=== PATIENT | male | born 1955 | race Caucasian/White ===

== ENCOUNTER 2021-08-12 11:41 | Inpatient (IN) | payer MEDICAID, OTHER ==
[~2021-08-12] VITALS: Ht 172.7 cm; Wt 79.4 kg
[2021-08-12] MEDS ORDERED: METF-873 PO (12:07)
[2021-08-12] MEDS ORDERED: GLIP10TA10 PO (12:07)
[2021-08-12 14:39] LABS: BASOPHILS % 0.3 % (0.0-2.0); EOSINOPHILS % 0.8 % (0.0-5.0); HEMATOCRIT. 44.3 % (42.0-52.0); HEMOGLOBIN. 14.9 g/dL (14.0-18.0); LYMPHOCYTES % 12.9 % (20.0-50.0); MEAN CORPUSCULAR HEMOGLOBIN 29.5 pg (28.0-32.0); MEAN CORPUSCULAR VOLUME 87.6 fL (80.0-94.0); MEAN PLATELET VOLUME 8.7 fl (7.4-10.4); MONOCYTES % 8.1 % (2.0-8.0); NEUTROPHILS % 77.9 % (40.0-76.0); PLATELET 176 x1000/uL (130-400); RED BLOOD CELL COUNT 5.06 mill/uL (4.7-6.1); RED CELL DISTRIBUTION WIDTH 13.1 % (11.6-14.6)
[2021-08-12 14:43] LABS: CHLORIDE 105 mEq/L (98-107)
[2021-08-12] MEDS ORDERED: MEROPENEM 1,000 MG in SODIUM CHLORIDE 0.9% 100 ML IV SCH (15:00)
[2021-08-12] MEDS ORDERED: VANCOMYCIN 1 G PREMIX 200 ML IV SCH (15:00)
[2021-08-12 19:58] LABS: CLARITY URINE CLEAR (CLEAR); COLOR URINE YELLOW (YELLOW); KETONES URINE 1+ (NEGATIVE); LEUKOCYTE ESTERASE URINE NEGATIVE (NEGATIVE); NITRITE URINE NEGATIVE (NEGATIVE); OCCULT BLOOD URINE NEGATIVE (NEGATIVE); PH URINE 7.5 (4.5-8.0); PROTEIN URINE TRACE (NEGATIVE); SPECIFIC GRAVITY URINE 1.023 (1.005-1.030)
[2021-08-12] MEDS ORDERED: DEXTROSE 50% WATER 50ML SYRINGE IV PRN (23:00)
[2021-08-12] MEDS ORDERED: CLONIDINE 0.1MG TABLET PO PRN (23:00)
[2021-08-12] MEDS ORDERED: ACETAMINOPHEN 325MG TABLET PO PRN (23:00)
[2021-08-12] MEDS ORDERED: NALOXONE HCL 0.4 MG/ML 1ML VIAL IV PRN (23:30)
[2021-08-13] MEDS: METOPROLOL TARTRATE 50MG TABLET PO SCH ×3 (00:23→21:50)
[2021-08-13] MEDS: LISINOPRIL 40MG TABLET PO SCH ×2 (00:23→08:42)
[2021-08-13] MEDS ORDERED: ATEN-42 MT (01:39)
[2021-08-13] MEDS ORDERED: LISI40TA13 MT (01:39)
[2021-08-13 01:49] VITALS: BP 164/80
[2021-08-13] MEDS: MEROPENEM 1,000 MG in SODIUM CHLORIDE 0.9% 100 ML IV SCH ×3 (02:50→17:43)
[2021-08-13 06:13] LABS: BASOPHILS % 0.3 % (0.0-2.0); EOSINOPHILS % 2.2 % (0.0-5.0); HEMATOCRIT. 39.2 % (42.0-52.0); HEMOGLOBIN. 13.4 g/dL (14.0-18.0); LYMPHOCYTES % 18.2 % (20.0-50.0); MEAN CORPUSCULAR HEMOGLOBIN 29.6 pg (28.0-32.0); MEAN CORPUSCULAR VOLUME 86.4 fL (80.0-94.0); MEAN PLATELET VOLUME 8.8 fl (7.4-10.4); MONOCYTES % 8.9 % (2.0-8.0); NEUTROPHILS % 70.4 % (40.0-76.0); PLATELET 170 x1000/uL (130-400); RED BLOOD CELL COUNT 4.53 mill/uL (4.7-6.1)
[2021-08-13 06:23] LABS: CHLORIDE 104 mEq/L (98-107)
[2021-08-13 06:43] LABS: LDL CHOLESTEROL 63 mg/dL (5-100)
[2021-08-13 06:44] LABS: HDL CHOLESTEROL 63 mg/dL (40-59)
[2021-08-13] MEDS: BLOOD SUGAR DIAGNOSTIC STRIP TEST SCH ×5 (06:52→21:00)
[2021-08-13 08:00] VITALS: BP 124/65
[2021-08-13] MEDS: METFORMIN HCL 500MG TABLET PO SCH ×2 (08:40→17:43)
[2021-08-13] MEDS: ENOXAPARIN 40MG/0.4ML SYR SUBCUT SCH (08:42)
[2021-08-13] MEDS: INSULIN LISPRO 100 UNITS/ML SUBCUT SCH ×4 (08:48→22:48)
[2021-08-13 12:00] VITALS: BP 133/69
[2021-08-13 16:00] VITALS: BP 127/65
[2021-08-13] MEDS ORDERED: DOCUSATE SODIUM 100MG CAPSULE PO PRN (17:45)
[2021-08-13] MEDS ORDERED: MAGNESIUM/ALUMINUM HYDROXIDE/SIMETHICONE 30ML UDC PO PRN (17:45)
[2021-08-13] MEDS ORDERED: DEXTROSE 50% WATER 50ML SYRINGE IV PRN (17:45)
[2021-08-13 20:00] VITALS: BP 128/66
[2021-08-14] VITALS: BP 122/62
[2021-08-14 04:00] VITALS: BP 126/63
[2021-08-14] MEDS: BLOOD SUGAR DIAGNOSTIC STRIP TEST SCH ×8 (06:52→21:07)
[2021-08-14] MEDS: INSULIN LISPRO 100 UNITS/ML SUBCUT SCH ×4 (06:56→21:21)
[2021-08-14] MEDS: OMEPRAZOLE 20MG CAPSULE EXTENDED RELEASE PO SCH (07:03)
[2021-08-14 08:00] VITALS: BP 138/69
[2021-08-14 08:37] LABS: BASOPHILS % 0.3 % (0.0-2.0); EOSINOPHILS % 3.2 % (0.0-5.0); HEMATOCRIT. 39.5 % (42.0-52.0); HEMOGLOBIN. 13.7 g/dL (14.0-18.0); LYMPHOCYTES % 22.5 % (20.0-50.0); MEAN CORPUSCULAR VOLUME 86.6 fL (80.0-94.0); MEAN PLATELET VOLUME 9.1 fl (7.4-10.4); PLATELET 197 x1000/uL (130-400); RED BLOOD CELL COUNT 4.56 mill/uL (4.7-6.1); RED CELL DISTRIBUTION WIDTH 12.8 % (11.6-14.6)
[2021-08-14 09:19] LABS: CHLORIDE 109 mEq/L (98-107)
[2021-08-14] MEDS: METFORMIN HCL 500MG TABLET PO SCH ×2 (10:52→17:41)
[2021-08-14] MEDS: METOPROLOL TARTRATE 50MG TABLET PO SCH ×2 (10:57→21:06)
[2021-08-14] MEDS: LISINOPRIL 40MG TABLET PO SCH (10:58)
[2021-08-14] MEDS: ENOXAPARIN 40MG/0.4ML SYR SUBCUT SCH (10:59)
[2021-08-14] MEDS: HYDROCODONE/ACETAMINOPHEN 5/325MG TABLET PO PRN (11:02)
[2021-08-14 12:00] VITALS: BP 129/63
[2021-08-14] MEDS: LEVOFLOXACIN 250MG TABLET PO SCH (12:51)
[2021-08-14] MEDS: VANCOMYCIN 1250MG in DEXTROSE 5% WATER 250ML IV SCH (13:38)
[2021-08-14 16:00] VITALS: BP 120/64
[2021-08-14 20:00] VITALS: BP 135/72
[2021-08-15] VITALS: BP 140/66
[2021-08-15] MEDS: VANCOMYCIN 1250MG in DEXTROSE 5% WATER 250ML IV SCH ×2 (00:17→14:48)
[2021-08-15 04:00] VITALS: BP 154/72
[2021-08-15] MEDS: BLOOD SUGAR DIAGNOSTIC STRIP TEST SCH ×8 (06:46→21:00)
[2021-08-15] MEDS: OMEPRAZOLE 20MG CAPSULE EXTENDED RELEASE PO SCH (06:46)
[2021-08-15 07:25] LABS: BASOPHILS % 0.3 % (0.0-2.0); EOSINOPHILS % 4.3 % (0.0-5.0); HEMATOCRIT. 39.3 % (42.0-52.0); HEMOGLOBIN. 13.7 g/dL (14.0-18.0); LYMPHOCYTES % 30.1 % (20.0-50.0); MEAN CORPUSCULAR HEMOGLOBIN 29.8 pg (28.0-32.0); MEAN CORPUSCULAR VOLUME 85.7 fL (80.0-94.0); MEAN PLATELET VOLUME 8.9 fl (7.4-10.4); MONOCYTES % 10.8 % (2.0-8.0); NEUTROPHILS % 54.5 % (40.0-76.0); PLATELET 194 x1000/uL (130-400); RED BLOOD CELL COUNT 4.59 mill/uL (4.7-6.1); RED CELL DISTRIBUTION WIDTH 12.7 % (11.6-14.6)
[2021-08-15 07:28] LABS: CHLORIDE 110 mEq/L (98-107)
[2021-08-15] MEDS: INSULIN LISPRO 100 UNITS/ML SUBCUT SCH ×4 (07:50→21:00)
[2021-08-15 08:00] VITALS: BP 144/54
[2021-08-15] MEDS: METFORMIN HCL 500MG TABLET PO SCH ×2 (09:57→17:14)
[2021-08-15] MEDS: LISINOPRIL 40MG TABLET PO SCH (10:01)
[2021-08-15] MEDS: METOPROLOL TARTRATE 50MG TABLET PO SCH ×2 (10:01→20:47)
[2021-08-15] MEDS: LEVOFLOXACIN 250MG TABLET PO SCH (10:02)
[2021-08-15] MEDS: ENOXAPARIN 40MG/0.4ML SYR SUBCUT SCH (10:02)
[2021-08-15] MEDS: HYDROCODONE/ACETAMINOPHEN 5/325MG TABLET PO PRN (10:05)
[2021-08-15 12:00] VITALS: BP 143/72
[2021-08-15 16:00] VITALS: BP 145/70
[2021-08-15 20:00] VITALS: BP 144/65
[2021-08-15] MEDS: FAMOTIDINE 20MG TABLET PO SCH (20:52)
[2021-08-16] VITALS: BP 151/73
[2021-08-16] MEDS: VANCOMYCIN 1250MG in DEXTROSE 5% WATER 250ML IV SCH ×2 (00:11→13:53)
[2021-08-16 04:00] VITALS: BP 146/74
[2021-08-16] MEDS: INSULIN LISPRO 100 UNITS/ML SUBCUT SCH ×4 (07:50→21:00)
[2021-08-16] MEDS: ENOXAPARIN 40MG/0.4ML SYR SUBCUT SCH (08:05)
[2021-08-16] MEDS: METOPROLOL TARTRATE 50MG TABLET PO SCH ×2 (08:06→21:16)
[2021-08-16] MEDS: FAMOTIDINE 20MG TABLET PO SCH ×2 (08:06→21:15)
[2021-08-16] MEDS: METFORMIN HCL 500MG TABLET PO SCH ×2 (08:06→18:14)
[2021-08-16] MEDS: LISINOPRIL 40MG TABLET PO SCH (08:06)
[2021-08-16 08:08] LABS: CHLORIDE 110 mEq/L (98-107)
[2021-08-16] MEDS: BLOOD SUGAR DIAGNOSTIC STRIP TEST SCH ×4 (08:10→21:28)
[2021-08-16] MEDS ORDERED: LIDOCAINE HCL 1% 10 MG/ML 10ML VIAL ONE (08:58)
[2021-08-16] MEDS: LEVOFLOXACIN 250MG TABLET PO SCH (11:22)
[2021-08-16] MEDS ORDERED: DIPHENHYDRAMINE 50MG/ML VIAL IV PRN (22:00)
[2021-08-16] MEDS: CEFAZOLIN 1000MG PREMIX 50 ML IV SCH (23:14)
[2021-08-17 04:00] VITALS: BP 148/66
[2021-08-17] MEDS: VANCOMYCIN 1250MG in DEXTROSE 5% WATER 250ML IV SCH (05:10)
[2021-08-17] MEDS: CEFAZOLIN 1000MG PREMIX 50 ML IV SCH ×2 (06:24→15:43)
[2021-08-17] MEDS: BLOOD SUGAR DIAGNOSTIC STRIP TEST SCH ×2 (07:55→12:20)
[2021-08-17 08:00] VITALS: BP 149/71
[2021-08-17] MEDS: FAMOTIDINE 20MG TABLET PO SCH (09:12)
[2021-08-17] MEDS: LISINOPRIL 40MG TABLET PO SCH (09:12)
[2021-08-17] MEDS: METOPROLOL TARTRATE 50MG TABLET PO SCH (09:13)
[2021-08-17] MEDS: ENOXAPARIN 40MG/0.4ML SYR SUBCUT SCH (09:14)
[2021-08-17] MEDS: METFORMIN HCL 500MG TABLET PO SCH (09:18)
[2021-08-17] MEDS: INSULIN LISPRO 100 UNITS/ML SUBCUT SCH ×2 (09:19→14:09)
[2021-08-17 12:00] VITALS: BP 137/53
[2021-08-17 16:00] VITALS: BP 129/65
[2021-08-17 16:19] VITALS: BP 129/65
== END 2021-08-17 17:20 | disposition home health service (06) | DRG 720 ==
LOC: ER 11:41 → 6EST 16:26 → EDBEDREQ 16:29 → EDBEDREQTM 16:29 → ENRESERV 20:28 → CANBEDREQ 08-13 02:13
PROVIDERS: ADMIT Internal Medicine; ATTEND Internal Medicine
PROC: 02HV33Z Insertion of Infusion Device into Superior Vena Cava, Percutaneous Approach (ICD-10-PCS; principal; 2021-08-16)
PROC: B548ZZA Ultrasonography of Superior Vena Cava, Guidance (ICD-10-PCS; 2021-08-16)
PROC: B5181ZA Fluoroscopy of Superior Vena Cava using Low Osmolar Contrast, Guidance (ICD-10-PCS; 2021-08-16)
DX: A41.01 Sepsis due to Methicillin susceptible Staphylococcus aureus (principal); M86.171 Other acute osteomyelitis, right ankle and foot; E11.621 Type 2 diabetes mellitus with foot ulcer; E11.610 Type 2 diabetes mellitus with diabetic neuropathic arthropathy; E11.69 Type 2 diabetes mellitus with other specified complication; L03.115 Cellulitis of right lower limb; I10 Essential (primary) hypertension; E78.5 Hyperlipidemia, unspecified; L60.3 Nail dystrophy; L97.519 Non-pressure chronic ulcer of other part of right foot with unspecified severity; Z79.4 Long term (current) use of insulin; Z79.84 Long term (current) use of oral hypoglycemic drugs; Z79.899 Other long term (current) drug therapy; Z88.0 Allergy status to penicillin; Z89.421 Acquired absence of other right toe(s); E11.40 Type 2 diabetes mellitus with diabetic neuropathy, unspecified
CPT/HCPCS: 36415; 36573; 73630; 80048; 80053; 80061; 80076; 80202; 81003; 82962; 83036; 83735; 84100; 84145; 85025; 85651; 86140; 87186; 93306; 93923; 93970; 97022; 97162; 99285; C1725; J0690; J1200; J1650; J1815; J2185; J3370; J3490; J7050; J7060